=== PATIENT | male | born 1995 | race Caucasian/White ===

== ENCOUNTER 2024-08-15 07:30 | Emergency (ER) | payer OTHER ==
[2024-08-15] MEDS: Lidocaine 1% PF 2 ML SDV INJECT ONE (08:07)
== END 2024-08-15 08:33 | disposition home or self-care (01) ==
LOC: JD.ED 07:30
DX: S61.210A Laceration without foreign body of right index finger without damage to nail, initial encounter (principal); F17.210 Nicotine dependence, cigarettes, uncomplicated; Z86.16 Personal history of COVID-19; W26.8XXA Contact with other sharp object(s), not elsewhere classified, initial encounter
CPT/HCPCS: 12001; 99282; J3490